=== PATIENT | female | born 1945 ===

== ENCOUNTER 2023-02-14 14:14 | Emergency (ER) | payer MEDICARE ==
[~2023-02-14] VITALS: Ht 157.4 cm; Wt 122.5 kg
== END 2023-02-14 17:04 | disposition home or self-care (01) ==
LOC: ED
DX: S80.12XA Contusion of left lower leg, initial encounter (principal); U07.1 COVID-19; Z88.2 Allergy status to sulfonamides; W22.09XA Striking against other stationary object, initial encounter; Y93.89 Activity, other specified; Y92.810 Car as the place of occurrence of the external cause; Y99.8 Other external cause status